=== PATIENT | male | born 1995 | race Hispanic/Latino ===

== ENCOUNTER → 2022-01-24 | Outpatient (CLI) | payer BC ==
[~2022-01-24] MED LIST: IOHEXOL-350 75 ML VIAL IV ONE
== END | disposition home or self-care (01) ==
LOC: RAH 07:46
PROVIDERS: ATTEND Internal Medicine
DX: R31.9 Hematuria, unspecified (principal); Z90.49 Acquired absence of other specified parts of digestive tract
CPT/HCPCS: 74178; Q9967